=== PATIENT | female | born 1960 | race American Indian/Alaskan Native ===

== ENCOUNTER 2021-08-07 12:47 | Emergency (ER) | payer SELFPAY ==
[2021-08-07 12:54] VITALS: BP 163/90
--- NOTE | 2021-08-07 13:44 | XRay Report ---
CHEST 2 VIEWS INDICATION / CLINICAL INFORMATION: Chest Pain. COMPARISON: None available. FINDINGS: SUPPORT DEVICES: None. HEART / MEDIASTINUM: No significant abnormality. LUNGS / PLEURA: No significant pulmonary or pleural abnormality. No pneumothorax. ADDITIONAL FINDINGS: No significant additional findings. IMPRESSION: 1. No acute findings. Signer Name: Jeffrey Tse MD Signed: 08/07/2021 1:39 PM Workstation Name: [email or web address] [id number]
[2021-08-07 15:03] LABS: INR 1.59 (0.87-1.13)
[2021-08-07 15:05] LABS: Alanine Aminotransferase 42 units/L (7-56); Albumin 4.7 g/dL (3.9-5); Blood Urea Nitrogen 8 mg/dL (7-17); Calcium 9.7 mg/dL (8.4-10.2); Hemolysis Index 25
[2021-08-07 15:09] LABS: BUN/Creatinine Ratio 11
[2021-08-07 15:27] LABS: Partial Thromboplastin Time 61.7 Sec. (24.2-36.6)
--- NOTE | 2021-08-07 17:07 | Cat Scan Report ---
CT ABDOMEN AND PELVIS WITHOUT CONTRAST INDICATION / CLINICAL INFORMATION: abd pain. TECHNIQUE: Axial CT images were obtained through the abdomen and pelvis without IV contrast. All CT scans at this location are performed using CT dose reduction for ALARA by means of automated exposure control. COMPARISON: None available. FINDINGS: LOWER CHEST: No significant abnormality. LIVER: No significant abnormality. GALLBLADDER: Surgically absent. BILE DUCTS: No significant abnormality. PANCREAS: Atrophic pancreas containing scattered calcification. Mild adjacent inflammation. SPLEEN: No significant abnormality. ADRENALS: No significant abnormality. RIGHT KIDNEY / URETER: Mild scarring. LEFT KIDNEY / URETER: Mild scarring. STOMACH / SMALL BOWEL: No significant abnormality. COLON: No significant abnormality. APPENDIX: No significant abnormality. PERITONEUM: No free fluid. No free air. No fluid collection. LYMPH NODES: No significant adenopathy. VASCULAR STRUCTURES: No significant abnormality. URINARY BLADDER: No significant abnormality. REPRODUCTIVE ORGANS: No significant abnormality. ADDITIONAL FINDINGS: Small fat-containing ventral hernia in the midline above the umbilicus SKELETAL SYSTEM: No significant abnormality. IMPRESSION: 1. Changes of chronic pancreatitis mild superimposed acute pancreatitis. 2. No fluid collection. Signer Name: Wagner Beltrán MD Signed: 08/07/2021 5:03 PM Workstation Name: [employer]
--- NOTE | 2021-08-08 12:26 | Electrocardiograph Report ---
[facility] Test Date: 2021-08-07 Test Time: 12:57:47 Pat Name: SELENA MORILLO Department: Room: Gender: F Receivable Manager: NICHOLAS : 1960 Requested By: ED DOC Order Number: [id number] Reading MD: Alverto Flores Measurements Intervals [place]a Rate: 84 P: 62 OR: 215 QRS: -57 QRSD: 90 T: 57 QT: 385 QTc: 456 Interpretive Statements Sinus arrhythmia Borderline prolonged OR interval Left axis deviation Anteroseptal infarct, age indeterminate Low voltage QRS No previous ECG available for comparison Electronically Signed On 08-08-2021 12:26:13 EDT by Alverto Flores
== END 2021-08-08 02:00 | disposition left against medical advice (07) ==
LOC: ED 12:47
DX: R07.9 Chest pain, unspecified (principal); R10.9 Unspecified abdominal pain; Z53.21 Procedure and treatment not carried out due to patient leaving prior to being seen by health care provider
CPT/HCPCS: 36415; 71046; 74176; 80053; 83690; 84484; 85610; 85730; 93005